=== PATIENT | male | born 1990 | race Caucasian/White ===

== ENCOUNTER 2021-02-12 02:00 | Emergency (ER) | payer OTHER ==
[~2021-02-12] VITALS: Ht 172.7 cm; Wt 146.0 kg
[2021-02-12] MEDS ORDERED: LIDOCAINE HCL/EPINEPHRINE 1%-EPI 1:100,000 10 ML VIAL IJ ONE (02:45)
[2021-02-12] MEDS ORDERED: ACETAMINOPHEN 325MG TABLET PO ONE (02:45)
[2021-02-12] MEDS ORDERED: TRAMADOL 50MG TABLET PO ONE (02:45)
[2021-02-12] MEDS ORDERED: TETANUS, DIPHTHERIA, PERTUSSIS VAC/PF 0.5ML (>7YR OLD) IM ONE (02:45)
[2021-02-12] MEDS ORDERED: BACITRACIN ZINC OINT UDPKT TOP ONE (02:45)
[2021-02-12 02:59] VITALS: BP 147/90
[2021-02-12] MEDS ORDERED: LIDOCAINE HCL/EPINEPHRINE 1%-EPI 1:100,000 20 ML VIAL INFIL NR (03:00)
[2021-02-12] MEDS ORDERED: TOPUD MT (04:42)
[2021-02-12] MEDS ORDERED: IBUP-2028 MT (04:42)
== END 2021-02-12 05:14 | disposition home or self-care (01) ==
LOC: ER 02:00
DX: S06.899A Other specified intracranial injury with loss of consciousness of unspecified duration, initial encounter (principal); S01.01XA Laceration without foreign body of scalp, initial encounter; X99.0XXA Assault by sharp glass, initial encounter; Y93.89 Activity, other specified; Y92.59 Other trade areas as the place of occurrence of the external cause; Z23 Encounter for immunization
CPT/HCPCS: 12002; 70450; 90471; 90715; 99284; J3490; Z7610